=== PATIENT | male | born 1955 | race Caucasian/White ===

== ENCOUNTER 2024-04-10 22:37 | Emergency (ER) | payer MEDICARE ==
[~2024-04-10] VITALS: Ht 167.6 cm; Wt 113.9 kg
[~2024-04-10 22:37] MED LIST: AMLODIPINE BESYL5 MG PO; ASPIRIN EC81 MG PO; DOCUSATE SODIU100 MG PO; GABAPENTIN600 MG PO; HYDROCHLOROTHIA25 MG PO; LOSARTAN POTASS50 MG PO; LOVASTATIN40 MG PO; METOPROLOL TART50 MG PO; OXYCODONE HCL5 MG PO; PENICILLIN V P500 MG PO
[2024-04-10] MEDS ORDERED: NALOXONE HCL 0.4 MG SYR IV ONE (23:00)
[2024-04-10] MEDS ORDERED: SODIUM CHLORIDE 0.9% 500 ML IV PRN (23:00)
[2024-04-10] MEDS ORDERED: LORazepam 2 MG/ML VIAL IV ONE (23:00)
[2024-04-10 23:03] LABS: HEMOGLOBIN 13.4 g/dL (12.0-18.0)
[2024-04-10 23:08] LABS: BASOPHILS 1.2 % (0-2); EOSINOPHILS 0.5 % (0-6); HEMATOCRIT 38.9 % (35.0-50.0); LYMPHOCYTES 17.8 % (24-44); MCH 32.5 (27-36); MCHC 34.5 g/dl (30-36); MCV 94.3 fl (81-99); MONOCYTES 9.6 % (0-12); NEUTROPHILS 70.9 % (39-80); PLATELET COUNT 157 K/uL (140-440); RBC 4.12 M/ul (4.3-5.7); RDW 12.3 (10.5-15.0)
[2024-04-10] MEDS ORDERED: POTASSIUM CHLO10 ME1 PO (23:13)
[2024-04-10] MEDS ORDERED: DIGOXIN250 MCG PO (23:13)
[2024-04-10] MEDS ORDERED: DOXAZOSIN MESYLA4 MG PO (23:13)
[2024-04-10] MEDS ORDERED: FUROSEMIDE40 MG PO (23:13)
[2024-04-10] MEDS ORDERED: WARFARIN SODIUM5 MG PO (23:13)
[2024-04-10] MEDS ORDERED: COREG25 MG PO (23:14)
[2024-04-10 23:16] LABS: INR 2.13 (0.80-1.30); PROTIME 23.9 Sec (11.2-14.2)
[2024-04-10 23:33] LABS: ACETAMINOPHEN 0 ug/mL (10-30); ALBUMIN 2.7 g/dL (3.4-5.0); ALBUMIN/GLOBULIN RATIO 0.63 (1.1-2.4); ALCOHOL, MEDICAL 9 ng/dL (<3); ALKALINE PHOSPHATASE 107 U/L (46-116); ALT (SGPT) 14 U/L (14-59); ANION GAP 16.4 (7-21); AST (SGOT) 18 U/L (15-37); BILIRUBIN, TOTAL 0.8 mg/dL (0.2-1.0); CALCIUM 8.6 mg/dL (8.5-10.1); CARBON DIOXIDE 27 mmol/L (21-32); CHLORIDE 89 mmol/L (98-107); CREATININE, SERUM 1.83 mg/dL (0.70-1.30); DIGOXIN 1.1 ng/dL (0.9-2.0); GLOMERULAR FILTRATION RATE,EST 39 mL/min (>60); POTASSIUM 3.4 mmol/L (3.5-5.1); TSH, 3RD GENERATION 2.868 uIU/mL (0.358-3.740); UREA NITROGEN 26 mg/dL (7-18)
[2024-04-10] MEDS ORDERED: LIDOCAINE 2% VISCOUS 6 ML SYR TOP ONE (23:45)
[2024-04-11] MEDS ORDERED: METOPROLOL TARTRATE 5 MG/5 ML VIAL IV ONE (00:30)
[2024-04-11 00:51] LABS: BILIRUBIN, URINE NEGATIVE (negative); BLOOD/HGB, URINE LARGE (Negative); KETONE, URINE SMALL (Negative); LEUK ESTERASE, URINE SMALL (negative); NITRITE, URINE NEGATIVE (negative); PH, URINE 5.5 (5-7)
[2024-04-11 00:54] LABS: PH, VENOUS 7.472 (7.31-7.41)
[2024-04-11 00:57] LABS: RED BLOOD CELLS, URINE 21-40 /hpf (0-5); WHITE BLOOD CELLS, URINE 21-40 /HPF (0-5)
[2024-04-11 00:58] LABS: BACTERIA, URINE 2+ /hpf (negative); CASTS, URINE NONE SEEN \\lpf; COLLECTION TYPE, URINE CLEAN CATCH; CRYSTALS, URINE NONE SEEN (0-1+); EPITHELIAL CELLS, URINE NONE SEEN /lpf (0-1+); REFLEX CULTURE, URINE Yes (No)
[2024-04-11 01:04] LABS: AMPHETAMINES, URINE NEGATIVE (NEGATIVE); BARBITURATES, URINE NEGATIVE (NEGATIVE); BENZODIAZEPINE, URINE NEGATIVE (NEGATIVE); BUPRENORPHINE, URINE NEGATIVE (NEGATIVE); CANNABINOID, URINE POSITIVE (NEGATIVE); COCAINE, URINE NEGATIVE (NEGATIVE); ECSTASY, URINE NEGATIVE (NEGATIVE); FENTANYL, URINE NEGATIVE (NEGATIVE); METHADONE, URINE NEGATIVE (NEGATIVE); OPIATES, URINE POSITIVE (NEGATIVE); OXYCODONE, URINE NEGATIVE (NEGATIVE); PHENCYCLIDINE, URINE NEGATIVE (NEGATIVE)
[2024-04-11] MEDS ORDERED: MACROBID 100 M100 MG PO (01:38)
[2024-04-11] MEDS ORDERED: PYRIDIUM200 MG PO (01:38)
[2024-04-11] MEDS ORDERED: PHENAZOPYRIDINE HCL 100 MG TAB PO ONE (01:45)
[2024-04-11] MEDS ORDERED: NITROFURANTOIN MONOHYD MACROCR 100 MG HOME.PACK PO ONE (01:45)
[2024-04-11] MEDS ORDERED: CEFTRIAXONE/SODIUM CHLORIDE 1 GM/100 ML PIGGYBACK IV ONE (01:45)
[2024-04-11] MEDS ORDERED: AZITHROMYCIN 250 MG TAB PO ONE (01:45)
[2024-04-11] MEDS ORDERED: NALOXONE 4 MG NASAL SPRAY #2 HOME.PACK NAS ONE (01:45)
[2024-04-11 02:17] VITALS: BP 119/101
[2024-04-11 02:17] LABS: N. GONORRRHOEAE BY PCR NOT DETECTED (NOT DETECT)
--- NOTE | 2024-04-11 19:32 | EKG ---
[facility] [address] [place], [place] [address] Signed Atrial fibrillation with rapid ventricular response Nonspecific ST and T wave abnormality Abnormal ECG No previous ECGs available Confirmed by Harley Cole MD ([id number]) on 04/11/2024 7:31:52 PM Electronically Signed By: HARLEY COLE MD 04/11/241931 PATIENT NAME: GUDELIA DURHAM RONALD Electrocardiogram DATE OF : 53 PHYSICIAN: HARLEY COLE MD REPORT #: [id number] REPORT IS CONFIDENTIAL AND NOT TO BE RELEASED WITHOUT AUTHORIZATION
== END 2024-04-11 02:20 | disposition home or self-care (01) ==
LOC: ED 22:37
PROVIDERS: Family Medicine
DX: T40.2X1A Poisoning by other opioids, accidental (unintentional), initial encounter (principal); T48.1X1A Poisoning by skeletal muscle relaxants [neuromuscular blocking agents], accidental (unintentional), initial encounter; T36.91XA Poisoning by unspecified systemic antibiotic, accidental (unintentional), initial encounter; R42 Dizziness and giddiness; T83.511A Infection and inflammatory reaction due to indwelling urethral catheter, initial encounter; N39.0 Urinary tract infection, site not specified; I48.91 Unspecified atrial fibrillation; I10 Essential (primary) hypertension; I25.2 Old myocardial infarction; F17.200 Nicotine dependence, unspecified, uncomplicated; Z95.5 Presence of coronary angioplasty implant and graft; Z79.01 Long term (current) use of anticoagulants; Z79.899 Other long term (current) drug therapy
CPT/HCPCS: 36415; 51702; 80053; 80162; 80307; 81001; 82803; 84443; 84484; 85025; 85610; 87077; 87088; 93005; 93010; 99284-25; G0480; J0696; J2060; J2310; J3490; J7040